=== PATIENT | male | born 1960 | race Two or more races ===

== ENCOUNTER → 2024-12-12 | Outpatient (CLI) | payer MEDICAID, SELFPAY ==
[2024-12-12 10:43] LABS: Basophils % (Auto) 0 % (0-2.5); Eosinophils # (Auto) 0.1 Thou/mm3 (0.0-0.5); Eosinophils % (Auto) 1 % (0-10); Hematocrit 41.3 % (41.0-53.0); Hemoglobin 13.8 g/dL (13.5-16.0); Immature Granulocytes % (Auto) 0 % (0-0); Immature Granulocytes Auto 0.01 Thou/mm3 (0.00-0.00); Lymphocytes # (Auto) 1.3 Thou/mm3 (1.0-4.8); Lymphocytes % (Auto) 25 % (10-50); Mean Corpuscular HGB Conc 33.4 g/dl (31.0-37.0); Mean Corpuscular Hemoglobin 31.2 pg (25.0-35.0); Mean Corpuscular Volume 93 fL (80-100); Monocytes # (Auto) 0.4 Thou/mm3 (0.0-0.8); Monocytes % (Auto) 8 % (0-12); Neutrophils # (Auto) 3.4 Thou/mm3 (1.8-7.7); Neutrophils % (Auto) 66 % (37-80); Nucleated Red Blood Cell % 0 /100 WBC (0); Platelet Count 244 Thou/mm3 (140-440); RDW Standard Deviation 45.1 fL (35.1-43.9); Red Blood Count 4.42 Miln/mm3 (4.50-5.90); White Blood Count 5.2 Thou/mm3 (3.8-10.6)
[2024-12-12 11:26] LABS: Alanine Aminotransferase 42 U/L (10-49); Albumin, Serum 4.2 gm/dL (3.4-4.8); Albumin/Globulin Ratio 1.4 (1.2-2.2); Alkaline Phosphatase 102 U/L (46-116); Anion Gap 10 (7-16); Aspartate Amino Transferase 33 U/L (0-34); BUN/Creatinine Ratio 20 Ratio (12-20); Bilirubin,Total 0.4 mg/dL (0.3-1.2); Blood Urea Nitrogen 16 mg/dL (9-23); Carbon Dioxide 27.5 mMol/L (20.0-31.0); Chloride 105 mMol/L (98-107); Creatinine (Component) 0.8 mg/dL (0.6-1.3); Globulin 2.9 gm/dL (2.3-3.5); Glucose 96 mg/dL (74-106); LDH (Lactate Dehydrogenase) 188 U/L (120-246); Osmolality,Calculated 284 (275-295); Potassium 3.5 mMol/L (3.4-5.1); Sodium 142 mMol/L (136-145); Total Protein 7.1 gm/dL (5.7-8.2); eGFR > 60 See Note
[2024-12-12 21:00] LABS: Ferritin 77 ng/mL (10.5-307.3); Iron 119 mcg/dL (65-175); Percent Iron Saturation 38 % (20-55); Total Iron Binding Capacity 308 mcg/dL (250-425); Unsaturated Iron Binding 189 (225-295)
== END | disposition home or self-care (01) ==
PROVIDERS: PCP Family Medicine; Referring Provider Nurse Practitioner Family; Visit Provider Nurse Practitioner Family
DX: C49.A0 Gastrointestinal stromal tumor, unspecified site (principal)
CPT/HCPCS: 36415; 80053; 82728; 83540; 83550; 83615; 85025

== ENCOUNTER 2024-12-13 15:06 | Outpatient (RCR) | payer MEDICAID, SELFPAY | END 2024-12-30 23:59 | disposition home or self-care (01) | LOC: SCTC 15:06 | PROVIDERS: PCP Family Medicine; Referring Provider Physician Assistant; Visit Provider Internal Medicine Hematology & Oncology | DX: C49.A3 Gastrointestinal stromal tumor of small intestine (principal); R91.8 Other nonspecific abnormal finding of lung field; Z86.2 Personal history of diseases of the blood and blood-forming organs and certain disorders involving the immune mechanism | CPT/HCPCS: 99212; G0463 ==

== ENCOUNTER → 2025-01-13 | Outpatient (CLI) | payer MEDICAID, SELFPAY ==
[2025-01-13 11:11] LABS: Basophils % (Auto) 0 % (0-2.5); Eosinophils # (Auto) 0.1 Thou/mm3 (0.0-0.5); Eosinophils % (Auto) 1 % (0-10); Hematocrit 36.4 % (41.0-53.0); Hemoglobin 12.6 g/dL (13.5-16.0); Immature Granulocytes % (Auto) 0 % (0-0); Immature Granulocytes Auto 0.01 Thou/mm3 (0.00-0.00); Lymphocytes # (Auto) 1.4 Thou/mm3 (1.0-4.8); Lymphocytes % (Auto) 27 % (10-50); Mean Corpuscular HGB Conc 34.6 g/dl (31.0-37.0); Mean Corpuscular Hemoglobin 31.5 pg (25.0-35.0); Mean Corpuscular Volume 91 fL (80-100); Monocytes # (Auto) 0.6 Thou/mm3 (0.0-0.8); Monocytes % (Auto) 11 % (0-12); Neutrophils # (Auto) 3.3 Thou/mm3 (1.8-7.7); Neutrophils % (Auto) 61 % (37-80); Nucleated Red Blood Cell % 0 /100 WBC (0); Platelet Count 216 Thou/mm3 (140-440); RDW Standard Deviation 47.5 fL (35.1-43.9); White Blood Count 5.3 Thou/mm3 (3.8-10.6)
[2025-01-13 11:33] LABS: Alanine Aminotransferase 50 U/L (10-49); Albumin, Serum 4.1 gm/dL (3.4-4.8); Albumin/Globulin Ratio 1.6 (1.2-2.2); Alkaline Phosphatase 98 U/L (46-116); Anion Gap 6 (7-16); Aspartate Amino Transferase 33 U/L (0-34); BUN/Creatinine Ratio 19 Ratio (12-20); Bilirubin,Total 0.4 mg/dL (0.3-1.2); Blood Urea Nitrogen 15 mg/dL (9-23); Carbon Dioxide 29.4 mMol/L (20.0-31.0); Chloride 109 mMol/L (98-107); Creatinine (Component) 0.8 mg/dL (0.6-1.3); Globulin 2.6 gm/dL (2.3-3.5); Glucose 109 mg/dL (74-106); LDH (Lactate Dehydrogenase) 167 U/L (120-246); Osmolality,Calculated 288 (275-295); Potassium 3.4 mMol/L (3.4-5.1); Sodium 144 mMol/L (136-145); Total Protein 6.7 gm/dL (5.7-8.2); eGFR > 60 See Note
== END | disposition home or self-care (01) ==
LOC: SCTO 10:39
PROVIDERS: PCP Family Medicine; Referring Provider Nurse Practitioner Family; Visit Provider Nurse Practitioner Family
DX: C49.A0 Gastrointestinal stromal tumor, unspecified site (principal)
CPT/HCPCS: 36415; 80053; 83615; 85025

== ENCOUNTER 2025-01-17 11:17 | Outpatient (RCR) | payer MEDICAID, SELFPAY ==
--- NOTE | 2025-01-17 12:00 | CTCFLWUP_ITS ---
Patient: TERRY WORRELL : 1960 Page 2 of 2 FOLLOW UP NOTE DATE OF SERVICE: 01/17/2025 NAME: TERRY WORRELL ACCOUNT: [id number] : 1960 AGE: 64 INTERVAL HISTORY: Patient in for follow-up visit. Patient is accompanied by daughter. Patient completed colonoscopy and had only benign polyp as per patient and daughter. Patient is scheduled for EGD on February 18. He is taking Gleevec and doing well ONCOLOGY HISTORY:?[facility] Oncology Hx? 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 S/p resection (06/22/2022) On imatinib (07/30/2022?) PET/CT scan (07/18/2022) showed a residual 3.9 x 4.2 cm hypermetabolic soft tissue mass in the right lower abdomen. Exploratory laparotomy (12/22/2022) and resection of the residual tumor. CT of chest abdomen and pelvis showed mass in the gastric antrum, 25 mm in thickness and 35 mm length, recommend endoscopy follow-up, 07/12/2024 DIAGNOSIS: Gastrointestinal stromal tumor, unspecified site [ICD10] C49.A0?CloneBlock Dx? 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 TREATMENT HISTORY: Care?Plan Start?Date Cycle Day Intent HISTORY OF PRESENT ILLNESS: PREVIOUS NOTE: Terry Worrell is a 64-year-old S[place] speaking male with the following oncology history. 2021: The patient was having rectal bleeding for about a year. Mr. Worrell lost about 25 pounds in 6 months. 06/15/2022. Mr. Worrell went to the emergency room at [facility] because of abdominal pain of 1 day duration. 06/15/2022: CT scan of the abdomen and pelvis with IV contrast was obtained? 06/18/2022: CT-guided biopsy of the abdominal mass was performed? 06/22/2022: Mr. Worrell had exploratory laparotomy, resection of the portion of the small bowel and removal of large mass in the mesentery as well as incidental appendectomy. 07/18/2022: PET/CT scan was done at [facility]? 12/22/2022: Mr. Worrell had surgery done at [facility] 01/29/2023: Mr. Worrell is started back on imatinib 400 mg p.o. daily. 11/26/2023: CT scan of the chest abdomen and pelvis with IV contrast 03/10/2024: CT chest abdomen pelvis 07/12/2024: CT chest abdomen pelvis with contrast showed stable bilateral pulmonary nodule; gastric antrum, 25 mm in thickness and 35 mm length, recommended endoscopy follow-up, subtle osteoblastic foci L4 and L5 vertebral bodies, suggest MRI lumbar spine follow-up pre and post 08/22/2024: MRI of the lumbar spine with and without contrast No pattern diagnostic for osseous metastatic disease L5-S1 3 mm central lumbar disc bulge 08/19/2024: Hemoglobin 11.5, MCV 94, ANC 4.0, WBC 5.8, platelets 288,000, saturation 33%, B12 is 368 folate 19.29 OTHER MEDICAL HISTORY/CONDITIONS: HTN 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 Tobacco?Pack?per?Day:?1 Tobacco?Use?Years:?10 Tobacco?Use:?Quit?1989 ETOH?Use:?Socailly Drug?Note:?Denies Social?History?Note:?Lives?with? MEDICATIONS: 1. amlodipine - 10 mg 1 tab Daily 2. atorvastatin - 40 mg 1 tab Daily 3. benazepril - 40 mg 1 tab Daily 4. hydrochlorothiazide - 25 mg 1 tab Daily 5. imatinib - 400 mg 1 tab Daily?Palabra Meds? Medications Last Reconciled by Bina Cavazos MA on 01/17/2025 ALLERGIES: No Known Drug Allergies REVIEW OF SYSTEMS: A complete 14-point review of systems was performed and is negative except as noted in interval history. PHYSICAL EXAMINATION:?CloneBlock PE? VITAL SIGNS: PAIN: 0 - No pain ECOG Performance Status: 0 - Asymptomatic and fully active GENERAL APPEARANCE: Appears well, in no apparent distress, appropriately interactive. HEENT: Normocephalic, no temporal wasting, normal conjunctiva, no scleral icterus, normal hearing, lips without lesions, neck normal range of motion. CARDIOVASCULAR: Not assessed. PULMONARY: Normal respiratory effort, no respiratory distress or use of accessory muscles, speaking in full sentences, no tachypnea. EXTREMITIES: No cyanosis. SKIN: Small areas of bruising nothing more than a centimeter NEUROLOGIC: Alert and oriented x4. PSHYCHIATRIC: Appropriate affect, mood normal, behavior normal, intact thought and speech. LABORATORY DATA: I have personally reviewed and interpreted each of the patient?s relevant lab tests, abnormal findings are below: Date 01/13/25 ??WHITE?BLOOD?COUNT?(Thou/mm3) 5.3 ??RED?BLOOD?COUNT?(Miln/mm3) 4.00?L ??HEMOGLOBIN?(gm/dl) 12.6?L ??HEMATOCRIT?(%) 36.4?L ??PLATELET?COUNT?(Thou/mm3) 216 ??NEUTROPHILS?%,?AUTO?(%) 61 ??LYMPH?%,?AUTO?(%) 27 ??NEUTROPHILS,?AUTO?(Thou/mm3) 3.3 ASSESSMENT/PLAN:?Luis Murillo Assessment/Plan? #1. 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 S/p resection (06/22/2022) Continue imatinib (07/30/2022?) Last scan on 07/12/2024 CT scan reviewed and shows mass in the gastric antrum 25 x 33 mm and recommendation was to do EGD. Patient also noted to have subtle osteoblastic foci L4 and L2 and recommendation was to do MRI MRI was completed and was basically negative. PET/CT scan (07/18/2022) showed a residual 3.9 x 4.2 cm hypermetabolic soft tissue mass in the right lower abdomen. Exploratory laparotomy (12/22/2022) at [facility] and resection of the residual tumor. CT of chest abdomen and pelvis with contrast showed stable pulmonary nodules, mass in the gastric antrum, 25 mm in thickness and 35 mm in length, recommend endoscopy follow-up, subtle osteoblastic foci L4 and L2 vertebral bodies, suggest MRI of the lumbar spine with and without contrast showed no pattern diagnostic for osseous metastatic disease, L5-S1, 3 mm central lumbar disc bulge. Patient denies back pain at Will see patient back after the EGD in 2 months continue Gleevac CBC CMP LDH uric acid ordered CBC CMP LDH uric acid RETURN TO CLINIC: I will see him back in the clinic in 2 months. BILLING AND COMPLIANCE: I reviewed external records from providers outside my specialty as summarized above. I spent a total of 50 minutes on this patient?s care on the day of their visit excluding time spent related to any billed procedures. This time includes time spent with the patient as well as time spent documenting in the medical record, reviewing patients records and tests, obtaining history, placing orders, communicating with other healthcare professionals, counseling the patient, family or caregiver, and/or care coordination for the diagnoses above. Electronically Signed by: Rick Murillo MD T: 11:57 AM CC: PCP: Sharon Bee Referring: Sharon Bee This document was completed utilizing speech recognition software. Grammatical errors, random word insertions, pronoun errors, and incomplete sentences are an occasional consequence of this system due to software limitations, ambient noise, and hardware issues. Any formal questions or concerns about the content, text or information contained within the body of this dictation should be directly addressed to the provider for clarification.
== END 2025-01-27 23:59 | disposition home or self-care (01) ==
LOC: SCTC 11:17
PROVIDERS: PCP Family Medicine; Referring Provider Family Medicine; Visit Provider Internal Medicine Hematology & Oncology
DX: K63.5 Polyp of colon (principal); C49.A3 Gastrointestinal stromal tumor of small intestine; R91.8 Other nonspecific abnormal finding of lung field; R19.09 Other intra-abdominal and pelvic swelling, mass and lump
CPT/HCPCS: 99212; G0463

== ENCOUNTER 2025-03-23 11:03 | Outpatient (RCR) | payer MEDICAID, SELFPAY | END 2025-03-29 23:59 | disposition home or self-care (01) | LOC: SCTC 11:03 | PROVIDERS: PCP Family Medicine; Referring Provider Nurse Practitioner Family; Visit Provider Nurse Practitioner Family | DX: C49.A3 Gastrointestinal stromal tumor of small intestine (principal); K44.9 Diaphragmatic hernia without obstruction or gangrene; K29.70 Gastritis, unspecified, without bleeding; E83.51 Hypocalcemia; R91.8 Other nonspecific abnormal finding of lung field; M51.379 Other intervertebral disc degeneration, lumbosacral region without mention of lumbar back pain or lower extremity pain | CPT/HCPCS: 99212; G0463 ==

== ENCOUNTER → 2025-04-12 | Outpatient (CLI) | payer MEDICAID, SELFPAY ==
--- NOTE | 2025-04-12 13:00 | XR_ITS ---
Examination: Bone densitometry Date and time of exam:April 12, 2025 1258 hours INDICATIONS: 64-year-old male with diagnosis age related osteoporosis, also history gastrointestinal tumor Technique: Lumbar spine and hip total bone mineralization values of an calculated. Peak reference and age match control results have been displayed. Findings: Lumbar spine total bone mineralization is1.158 gm/cm2. This is 0.6 standard deviations above peak reference. This is 1.3 standard deviations above age-matched controls. Hip total bone mineralization is 1.069 gm/cm2 This is 0.1 standard deviations above peak reference. This is 0.6 standard deviations above age-matched controls Impression: There is normal mineralization based on lumbar spine measurements. There is osteopenia based on hip measurements
== END | disposition home or self-care (01) ==
LOC: CDIM 12:35
PROVIDERS: Referring Provider Nurse Practitioner Family; Visit Provider Nurse Practitioner Family
DX: M85.88 Other specified disorders of bone density and structure, other site (principal); C49.A0 Gastrointestinal stromal tumor, unspecified site
CPT/HCPCS: 77080

== ENCOUNTER → 2025-04-13 | Outpatient (CLI) | payer MEDICAID, SELFPAY ==
--- NOTE | 2025-04-13 09:00 | XR_ITS ---
Examination: Upper GI series with KUB Esophagram standard Fluoroscopy 19 spot fluoroscopic films of the esophagus and stomach Date and time: April 13, 2025 0813 hours INDICATIONS: Diagnosis intestinal carcinoma post surgery 2021, mass found on endoscopy one month ago TECHNIQUE AND FINDINGS: Patient swallowed thin barium with 19 spot fluoroscopic films of the esophagus stomach and duodenum Fluoroscopy 0.18 minute Primary peristaltic esophageal waves No constricting esophageal lesion Abnormal thickened mucosal folds in the gastric antral region No duodenal ulcer Mucosal folds in the duodenum appear abnormally thickened, edematous IMPRESSION: Abnormal pronounced mucosal fold thickening in the gastric antral region, differential would include gastric tumor, recommend endoscopy follow-up Mucosal edema in the duodenum
== END | disposition home or self-care (01) ==
PROVIDERS: Referring Provider Internal Medicine Gastroenterology; Visit Provider Internal Medicine Gastroenterology
DX: R94.8 Abnormal results of function studies of other organs and systems (principal)
CPT/HCPCS: 74240; A4699

== ENCOUNTER → 2025-05-15 | Outpatient (CLI) | payer MEDICAID, SELFPAY ==
[2025-05-15 10:50] LABS: Basophils % (Auto) 0 % (0-2.5); Eosinophils # (Auto) 0.1 Thou/mm3 (0.0-0.5); Eosinophils % (Auto) 1 % (0-10); Hematocrit 39.6 % (41.0-53.0); Hemoglobin 13.3 g/dL (13.5-16.0); Immature Granulocytes % (Auto) 0 % (0-0); Immature Granulocytes Auto 0.01 Thou/mm3 (0.00-0.00); Immature Reticulocyte Fraction 3.8 % (2.3-13.4); Lymphocytes # (Auto) 1.7 Thou/mm3 (1.0-4.8); Lymphocytes % (Auto) 25 % (10-50); Mean Corpuscular HGB Conc 33.6 g/dl (31.0-37.0); Mean Corpuscular Volume 95 fL (80-100); Monocytes # (Auto) 0.5 Thou/mm3 (0.0-0.8); Monocytes % (Auto) 8 % (0-12); Neutrophils # (Auto) 4.3 Thou/mm3 (1.8-7.7); Neutrophils % (Auto) 65 % (37-80); Nucleated Red Blood Cell % 0 /100 WBC (0); Platelet Count 188 Thou/mm3 (140-440); RDW Standard Deviation 47.9 fL (35.1-43.9); Red Blood Count 4.16 Miln/mm3 (4.50-5.90); Reticulocyte % (Auto) 0.8 % (0.5-1.5); Reticulocyte Absolute Auto 34.9 Biln/L (25.0-75.0); Reticulocyte Hgb Content 36.3 pg (28.0-35.0); White Blood Count 6.6 Thou/mm3 (3.8-10.6)
[2025-05-15 11:04] LABS: Ferritin 67 ng/mL (10.5-307.3); Iron 81 mcg/dL (65-175); Percent Iron Saturation 25 % (20-55); Total Iron Binding Capacity 313 mcg/dL (250-425); Unsaturated Iron Binding 232 (225-295)
[2025-05-15 11:05] LABS: Alanine Aminotransferase 68 U/L (10-49); Albumin, Serum 4.1 gm/dL (3.4-4.8); Albumin/Globulin Ratio 1.9 (1.2-2.2); Alkaline Phosphatase 94 U/L (46-116); Anion Gap 12 (7-16); Aspartate Amino Transferase 45 U/L (0-34); BUN/Creatinine Ratio 21 Ratio (12-20); Bilirubin,Total 0.3 mg/dL (0.3-1.2); Blood Urea Nitrogen 17 mg/dL (9-23); Calcium 8.4 mg/dL (8.3-10.6); Calcium (Corrected) 8.4 mg/dL (8.5-10.1); Chloride 105 mMol/L (98-107); Creatinine (Component) 0.8 mg/dL (0.6-1.3); Globulin 2.2 gm/dL (2.3-3.5); Glucose 96 mg/dL (74-106); LDH (Lactate Dehydrogenase) 190 U/L (120-246); Osmolality,Calculated 290 (275-295); Potassium 3.5 mMol/L (3.4-5.1); Sodium 145 mMol/L (136-145); Total Protein 6.3 gm/dL (5.7-8.2); Uric Acid 4.3 mg/dL (3.7-9.2); eGFR > 60 See Note
[2025-05-15 11:28] LABS: Folate > 24.00 ng/mL (>5.38); Vitamin B12 511 pg/mL (211-911)
== END | disposition home or self-care (01) ==
LOC: SCTO 09:14
PROVIDERS: PCP Family Medicine; Referring Provider Nurse Practitioner Family; Visit Provider Nurse Practitioner Family
DX: C49.A0 Gastrointestinal stromal tumor, unspecified site (principal)
CPT/HCPCS: 36415; 80053; 82607; 82728; 82746; 83540; 83550; 83615; 84550; 85025; 85046

== ENCOUNTER 2025-05-16 10:58 | Outpatient (RCR) | payer MEDICAID, SELFPAY | END 2025-05-29 23:59 | disposition home or self-care (01) | LOC: SCTC 10:58 | PROVIDERS: PCP Family Medicine; Referring Provider Family Medicine; Visit Provider Nurse Practitioner Family | DX: C49.A3 Gastrointestinal stromal tumor of small intestine (principal); M85.80 Other specified disorders of bone density and structure, unspecified site | CPT/HCPCS: 99212; G0463 ==

== ENCOUNTER → 2025-06-08 | Outpatient (CLI) | payer MEDICAID, SELFPAY ==
[2025-06-08 17:31] LABS: Basophils # (Auto) 0.0 Thou/mm3 (0.0-0.2); Basophils % (Auto) 0 % (0-2.5); Eosinophils # (Auto) 0.1 Thou/mm3 (0.0-0.5); Eosinophils % (Auto) 1 % (0-10); Hematocrit 36.5 % (41.0-53.0); Hemoglobin 12.5 g/dL (13.5-16.0); Immature Granulocytes Auto 0.01 Thou/mm3 (0.00-0.00); Lymphocytes # (Auto) 1.5 Thou/mm3 (1.0-4.8); Lymphocytes % (Auto) 28 % (10-50); Mean Corpuscular HGB Conc 34.2 g/dl (31.0-37.0); Mean Corpuscular Hemoglobin 32.6 pg (25.0-35.0); Mean Corpuscular Volume 95 fL (80-100); Monocytes # (Auto) 0.4 Thou/mm3 (0.0-0.8); Monocytes % (Auto) 8 % (0-12); Neutrophils # (Auto) 3.5 Thou/mm3 (1.8-7.7); Neutrophils % (Auto) 63 % (37-80); Nucleated Red Blood Cell # 0.00 Thou/mm3 (0.00-0.00); Nucleated Red Blood Cell % 0 /100 WBC (0); Platelet Count 234 Thou/mm3 (140-440); RDW Standard Deviation 49.2 fL (35.1-43.9); Red Blood Count 3.83 Miln/mm3 (4.50-5.90); White Blood Count 5.5 Thou/mm3 (3.8-10.6)
[2025-06-08 17:48] LABS: Alanine Aminotransferase 57 U/L (10-49); Albumin, Serum 4.4 gm/dL (3.4-4.8); Albumin/Globulin Ratio 1.7 (1.2-2.2); Alkaline Phosphatase 88 U/L (46-116); Anion Gap 10 (7-16); Aspartate Amino Transferase 38 U/L (0-34); BUN/Creatinine Ratio 17 Ratio (12-20); Bilirubin,Total 0.4 mg/dL (0.3-1.2); Blood Urea Nitrogen 19 mg/dL (9-23); Calcium 9.1 mg/dL (8.3-10.6); Calcium (Corrected) 9.1 mg/dL (8.5-10.1); Carbon Dioxide 28.0 mMol/L (20.0-31.0); Chloride 106 mMol/L (98-107); Creatinine (Component) 1.1 mg/dL (0.6-1.3); Globulin 2.6 gm/dL (2.3-3.5); Glucose 139 mg/dL (74-106); Osmolality,Calculated 291 (275-295); Potassium 3.2 mMol/L (3.4-5.1); Sodium 144 mMol/L (136-145); Total Protein 7.0 gm/dL (5.7-8.2); eGFR > 60 See Note
== END | disposition home or self-care (01) ==
LOC: SCTO 16:12
PROVIDERS: PCP Family Medicine; Referring Provider Nurse Practitioner Family; Visit Provider Nurse Practitioner Family
DX: C49.A0 Gastrointestinal stromal tumor, unspecified site (principal)
CPT/HCPCS: 36415; 80053; 85025

== ENCOUNTER → 2025-06-19 | Outpatient (CLI) | payer MEDICAID, SELFPAY ==
--- NOTE | 2025-06-19 11:00 | XR_ITS ---
Examination: CT chest with intravenous contrast CT chest without intravenous contrast 2-D reconstructions Date and time of exam:June 19, 2025 at 1128 hours Comparison July 12, 2024 INDICATIONS: Diagnosis gastrointestinal stromal tumor small bowel carcinoma diagnosis November 2022, restaging CTDI:vol (mGy) 17.5 DLP: (mGycm) 693 Technique: Multiple axial sections of the thorax have been obtained. 3 mm slice thickness, from the hemidiaphragms to above the apices of the lungs. Mediastinal and lung density settings have been obtained. Intravenous contrast administered 60 cc [id number]-[id number]. Noncontrast images have also been obtained. 2-D sagittal coronal images obtained. Low dose protocols were performed. One or more of the following dose reduction techniques were used; automated exposure control, adjustment of the mA and/or KV according to patient size, use of iterative reconstruction technique. Findings: No thoracic aortic aneurysm dilatation No pulmonary artery filling defects No paratracheal tracheobronchial or bronchopulmonary adenopathy Stable subcentimeter bilateral pulmonary nodules, no new pulmonary nodules No pneumonia or pulmonary edema Abnormal thickening in the body and gastric antrum again depicted No gallstones No hydronephrosis IMPRESSION: Stable bilateral pulmonary nodules, no new pulmonary nodules compared with July 12, 2024 Gastric wall thickening in the body and gastric antrum again noted, clinical correlation advised
== END | disposition home or self-care (01) ==
PROVIDERS: PCP Family Medicine; Referring Provider Nurse Practitioner Family; Visit Provider Nurse Practitioner Family
DX: R91.8 Other nonspecific abnormal finding of lung field (principal); C49.A0 Gastrointestinal stromal tumor, unspecified site; K31.89 Other diseases of stomach and duodenum
CPT/HCPCS: 71270; A4649; Q9967

== ENCOUNTER 2025-06-20 14:20 | Outpatient (RCR) | payer MEDICAID, SELFPAY | END 2025-06-29 23:59 | disposition home or self-care (01) | LOC: SCTC 14:20 | PROVIDERS: PCP Family Medicine; Referring Provider Nurse Practitioner Family; Visit Provider Nurse Practitioner Family | DX: C49.A3 Gastrointestinal stromal tumor of small intestine (principal); R91.8 Other nonspecific abnormal finding of lung field; M85.80 Other specified disorders of bone density and structure, unspecified site | CPT/HCPCS: 99212; G0463 ==

== ENCOUNTER → 2025-08-17 | Outpatient (CLI) | payer MEDICAID, SELFPAY ==
[2025-08-17 10:24] LABS: Basophils # (Auto) 0.0 Thou/mm3 (0.0-0.2); Basophils % (Auto) 0 % (0-2.5); Eosinophils # (Auto) 0.1 Thou/mm3 (0.0-0.5); Eosinophils % (Auto) 2 % (0-10); Hematocrit 36.2 % (41.0-53.0); Hemoglobin 11.9 g/dL (13.5-16.0); Immature Granulocytes Auto 0.00 Thou/mm3 (0.00-0.00); Lymphocytes # (Auto) 1.3 Thou/mm3 (1.0-4.8); Lymphocytes % (Auto) 33 % (10-50); Mean Corpuscular HGB Conc 32.9 g/dl (31.0-37.0); Mean Corpuscular Hemoglobin 32.2 pg (25.0-35.0); Mean Corpuscular Volume 98 fL (80-100); Monocytes # (Auto) 0.4 Thou/mm3 (0.0-0.8); Monocytes % (Auto) 10 % (0-12); Neutrophils # (Auto) 2.1 Thou/mm3 (1.8-7.7); Neutrophils % (Auto) 55 % (37-80); Nucleated Red Blood Cell # 0.00 Thou/mm3 (0.00-0.00); Nucleated Red Blood Cell % 0 /100 WBC (0); Platelet Count 252 Thou/mm3 (140-440); RDW Standard Deviation 51.1 fL (35.1-43.9); Red Blood Count 3.70 Miln/mm3 (4.50-5.90); White Blood Count 3.9 Thou/mm3 (3.8-10.6)
[2025-08-17 10:35] LABS: Alanine Aminotransferase 35 U/L (10-49); Albumin, Serum 4.3 gm/dL (3.4-4.8); Albumin/Globulin Ratio 1.8 (1.2-2.2); Alkaline Phosphatase 79 U/L (46-116); Anion Gap 8 (7-16); Aspartate Amino Transferase 30 U/L (0-34); BUN/Creatinine Ratio 15 Ratio (12-20); Bilirubin,Total 0.5 mg/dL (0.3-1.2); Blood Urea Nitrogen 12 mg/dL (9-23); Calcium 8.9 mg/dL (8.3-10.6); Calcium (Corrected) 8.9 mg/dL (8.5-10.1); Carbon Dioxide 30.6 mMol/L (20.0-31.0); Chloride 104 mMol/L (98-107); Creatinine (Component) 0.8 mg/dL (0.6-1.3); Globulin 2.4 gm/dL (2.3-3.5); Glucose 97 mg/dL (74-106); LDH (Lactate Dehydrogenase) 188 U/L (120-246); Osmolality,Calculated 284 (275-295); Potassium 3.5 mMol/L (3.4-5.1); Sodium 143 mMol/L (136-145); Total Protein 6.7 gm/dL (5.7-8.2); Uric Acid 3.3 mg/dL (3.7-9.2); eGFR > 60 See Note
== END | disposition home or self-care (01) ==
LOC: SCTO 09:00
PROVIDERS: PCP Family Medicine; Referring Provider Nurse Practitioner Family; Visit Provider Nurse Practitioner Family
DX: C49.A0 Gastrointestinal stromal tumor, unspecified site (principal)
CPT/HCPCS: 36415; 80053; 83615; 84550; 85025

== ENCOUNTER 2025-08-22 08:59 | Outpatient (RCR) | payer MEDICAID, SELFPAY | END 2025-08-29 23:59 | disposition home or self-care (01) | LOC: SCTC 08:59 | PROVIDERS: PCP Family Medicine; Referring Provider Family Medicine; Visit Provider Nurse Practitioner Family | DX: C49.A3 Gastrointestinal stromal tumor of small intestine (principal); R91.8 Other nonspecific abnormal finding of lung field; R19.09 Other intra-abdominal and pelvic swelling, mass and lump; M85.80 Other specified disorders of bone density and structure, unspecified site; Z86.2 Personal history of diseases of the blood and blood-forming organs and certain disorders involving the immune mechanism | CPT/HCPCS: 99212; G0463 ==

== ENCOUNTER → 2025-11-07 | Outpatient (CLI) | payer MEDICAID, SELFPAY ==
[2025-11-07 09:43] LABS: Basophils # (Auto) 0.0 Thou/mm3 (0.0-0.2); Basophils % (Auto) 0 % (0-2.5); Eosinophils # (Auto) 0.1 Thou/mm3 (0.0-0.5); Eosinophils % (Auto) 1 % (0-10); Hematocrit 37.5 % (41.0-53.0); Hemoglobin 12.5 g/dL (13.5-16.0); Immature Granulocytes Auto 0.01 Thou/mm3 (0.00-0.00); Immature Reticulocyte Fraction 6.4 % (2.3-13.4); Lymphocytes # (Auto) 1.6 Thou/mm3 (1.0-4.8); Lymphocytes % (Auto) 30 % (10-50); Mean Corpuscular HGB Conc 33.3 g/dl (31.0-37.0); Mean Corpuscular Hemoglobin 32.2 pg (25.0-35.0); Mean Corpuscular Volume 97 fL (80-100); Monocytes # (Auto) 0.5 Thou/mm3 (0.0-0.8); Monocytes % (Auto) 8 % (0-12); Neutrophils # (Auto) 3.4 Thou/mm3 (1.8-7.7); Neutrophils % (Auto) 61 % (37-80); Nucleated Red Blood Cell # 0.00 Thou/mm3 (0.00-0.00); Nucleated Red Blood Cell % 0 /100 WBC (0); Platelet Count 223 Thou/mm3 (140-440); RDW Standard Deviation 49.9 fL (35.1-43.9); Red Blood Count 3.88 Miln/mm3 (4.50-5.90); Reticulocyte % (Auto) 1.0 % (0.5-1.5); Reticulocyte Absolute Auto 37.2 Biln/L (25.0-75.0); Reticulocyte Hgb Content 39.3 pg (28.0-35.0); White Blood Count 5.6 Thou/mm3 (3.8-10.6)
[2025-11-07 10:01] LABS: Folate 19.17 ng/mL (>5.38); Vitamin B12 426 pg/mL (211-911)
[2025-11-07 10:08] LABS: Ferritin 78 ng/mL (10.5-307.3); Iron 93 mcg/dL (65-175); Percent Iron Saturation 32 % (20-55); Total Iron Binding Capacity 287 mcg/dL (250-425); Unsaturated Iron Binding 194 (225-295)
[2025-11-07 10:11] LABS: Alanine Aminotransferase 52 U/L (10-49); Albumin, Serum 4.2 gm/dL (3.4-4.8); Albumin/Globulin Ratio 1.4 (1.2-2.2); Alkaline Phosphatase 90 U/L (46-116); Anion Gap 9 (7-16); Aspartate Amino Transferase 36 U/L (0-34); BUN/Creatinine Ratio 16 Ratio (12-20); Bilirubin,Total 0.4 mg/dL (0.3-1.2); Blood Urea Nitrogen 13 mg/dL (9-23); Calcium 8.7 mg/dL (8.3-10.6); Calcium (Corrected) 8.7 mg/dL (8.5-10.1); Carbon Dioxide 29.3 mMol/L (20.0-31.0); Chloride 106 mMol/L (98-107); Creatinine (Component) 0.8 mg/dL (0.6-1.3); Globulin 2.9 gm/dL (2.3-3.5); Glucose 99 mg/dL (74-106); LDH (Lactate Dehydrogenase) 172 U/L (120-246); Osmolality,Calculated 286 (275-295); Potassium 4.1 mMol/L (3.4-5.1); Sodium 144 mMol/L (136-145); Total Protein 7.1 gm/dL (5.7-8.2); Uric Acid 2.7 mg/dL (3.7-9.2); eGFR > 60 See Note
== END | disposition home or self-care (01) ==
LOC: SCTO 08:31
PROVIDERS: PCP Family Medicine; Referring Provider Nurse Practitioner Family; Visit Provider Nurse Practitioner Family
DX: C49.A0 Gastrointestinal stromal tumor, unspecified site (principal)
CPT/HCPCS: 36415; 80053; 82607; 82728; 82746; 83540; 83550; 83615; 84550; 85025; 85046